=== PATIENT | female | born 1950 | race Caucasian/White ===

== ENCOUNTER → 2023-04-28 10:01 | Outpatient (BNVA) | payer OTHER, SELFPAY | PROVIDERS: PCP Family Medicine; Referring Provider Family Medicine; Visit Provider Psychiatry & Neurology Neurology | DX: G25.0 Essential tremor; I25.10 Atherosclerotic heart disease of native coronary artery without angina pectoris; Z95.5 Presence of coronary angioplasty implant and graft; R26.89 Other abnormalities of gait and mobility | CPT/HCPCS: 36415; 82306; 82607; 82746; 83735; 83921; 84155; 84165; 84425; 84439; 84443; 84481; 86334; 86592; 86780; 99203 ==

== ENCOUNTER 2023-05-21 12:14 | Outpatient (CLI) | payer OTHER, SELFPAY ==
--- NOTE | 2023-05-21 12:30 | USCV_ITS ---
Daniel Johnson Age: 73 Gender: F : 1950 Exam Date: 05/21/2023 12:54 Ordering Phys: Prabhakar Argueta MD Technologist: LONI Exam Location: [facility] [place] Indication: Tremors Risk Factors: Previous Vascular Surgery: Right Brachial BP: / Left Brachial BP: / Right Left Velocity (cm/s) Spectral Plaque Velocity (cm/s) Spectral Plaque Syst/Diast Broadening Syst/Diast Broadening 70.20/ 9.60 Prox CCA 100.30/ 23.20 89.50/ 14.60 Mid CCA 111.40/ 9.90 73.90/ 15.40 Distal CCA 83.80 / 9.90 86.70/ 13.90 Prox ICA 50.40 / 12.60 107.00/30.00 Mid ICA 78.10 / 21.00 91.00/ 24.60 Distal ICA 84.90 / 22.70 124.20 ECA 185.40 1.20 ICA/CCA 0.76 Antegrade Vertebral Antegrade 48.90/ 15.50 cm/s 174.8/ 28.95 cm/s 5 Tri Subclavian Tri 193.7 142.6 0 0 CONCLUSIONS Right ICA stenosis <50%. Moderate calcified atheromatous plaque right carotid bulb/ICA. Left ICA stenosis <50%. Moderate calcified atheromatous plaque left carotid bulb/ICA. Calcified plaque in both CCA's Intimal thickening in the common carotid arteries and internal carotid arteries bilaterally. Normal antegrade Doppler flow noted in the right vertebral artery. Normal antegrade Doppler flow noted in the left vertebral artery. Tim Burroughs MD (Electronically Signed) Final Date: 21 May 2023 16:35 S
--- NOTE | 2023-05-21 13:45 | MR_ITS ---
WS: [id number] MRI BRAIN WITH AND WITHOUT CONTRAST HISTORY: R25.1 - Tremor, unspecified COMPARISON: None available. TECHNIQUE: Multiplanar imaging performed through the brain with MultiHance 18 ml's IV. No acute infarcts are seen. Tabor-white matter differentiation is well preserved. Moderate bilateral s ymmetric atrophy. Very minimal small vessel ischemic disease. No prior infarct. No susceptibility artifacts or prior lacunar infarcts. Mild bilateral hippocampal formation atrophy. Ventricles and extra-axial spaces are normal. Clivus and pituitary gland are normal. Visualized posterior fossa and brainstem are also normal. Postcontrast images are negative for masses or vascular malformations. Dural venous sinuses are normal. Paranasal sinuses: Mild mucoperiosteal thickening in the LEFT maxillary sinus. No air-fluid levels. Mastoid air cells: Normal. Calvarium and scalp: Normal. IMPRESSION: 1. No acute infarct or hemorrhage. 2. Moderate bilateral symmetric atrophy with minimal small vessel ischemic disease. 3. Mild bilateral hippocampal atrophy.
[2023-05-21] MEDS: gadobenate dimeglumine 20 mL vial IV (14:13)
== END 2023-05-21 12:15 | disposition home or self-care (01) ==
PROVIDERS: PCP Family Medicine; Visit Provider Psychiatry & Neurology Neurology
DX: R25.1 Tremor, unspecified (principal)
CPT/HCPCS: 70553; 93880; A9577

== ENCOUNTER → 2023-07-07 14:43 | Outpatient (BNVA) | payer OTHER, SELFPAY | PROVIDERS: PCP Family Medicine; Visit Provider Psychiatry & Neurology Neurology | DX: G25.0 Essential tremor (principal); R29.3 Abnormal posture; R29.818 Other symptoms and signs involving the nervous system | CPT/HCPCS: 99213 ==

== ENCOUNTER → 2023-11-19 14:10 | Outpatient (BNVA) | payer OTHER, SELFPAY | PROVIDERS: PCP Family Medicine; Visit Provider Psychiatry & Neurology Neurology | DX: G20.A1 Parkinson's disease without dyskinesia, without mention of fluctuations (principal); G25.0 Essential tremor | CPT/HCPCS: 99212 ==